=== PATIENT | male | born 1980 | race Hispanic/Latino ===

== ENCOUNTER 2018-03-19 00:17 | Emergency (ER) | payer SELFPAY | END 2018-03-19 00:38 | disposition home or self-care (01) | LOC: NAV ERS 00:17 | DX: F10.129 Alcohol abuse with intoxication, unspecified (principal) | CPT/HCPCS: 99283 ==

== ENCOUNTER 2018-09-26 10:56 | Emergency (ER) | payer SELFPAY ==
[~2018-09-26 10:56] MED LIST: Iopamidol 300 61% 100 ML VIAL FS ONE
[2018-09-26] MEDS ORDERED: Pantoprazole 40 MG VIAL ONE (11:43)
[2018-09-26] MEDS ORDERED: Ketorolac Tromethamine 30 MG/ML VIAL ONE (11:43)
[2018-09-26 11:56] LABS: Bilirubin Small (Negative); Blood, Urine Negative (Negative); Clarity Clear (Clear); Glucose, Urine (Dipstick) Negative (Negative); Leukocyte Negative (Negative); Protein, Urine (Dipstick) 100 mg/dL (Neg-Trace); Specific Gravity, Urine 1.015 (1.005-1.030); pH, Urine 7.5 (5.0-9.0)
[2018-09-26 12:02] LABS: Amphetamine Not Detected (NotDetected); Barbiturates Screen Not Detected (NotDetected); Benzodiazepine Screen Not Detected (NotDetected); Cocaine Metabolite Screen Not Detected (NotDetected); Medtox Control Line Valid? VALID (VALID); Methadone Not Detected (NotDetected); Methamphetamine Not Detected (NotDetected); Opiate Screen Not Detected (NotDetected); Oxycodone Screen Not Detected (NotDetected); Phencyclidine (PCP) Not Detected (NotDetected); THC/Cannabinoid Screen Not Detected (NotDetected); Tricyclic Screen Not Detected (NotDetected)
[2018-09-26 12:04] LABS: ALT (SGPT) 96 U/L (8-55); AST (SGOT) 162 U/L (5-34); Albumin 4.4 g/dL (3.5-5.0); Alcohol Less than 10 mg/dL (Less than 10); Alkaline Phosphatase 115 U/L (40-150); Anion Gap 18 mmol/L (10-20); BUN (Urea Nitrogen) 9 mg/dL (8.9-20.6); Bilirubin, Total 2.3 mg/dL (0.2-1.2); Calc. Creatinine Clearance 0 mL/min (70-130); Calcium 9.5 mg/dL (7.8-10.44); Carbon Dioxide 21 mmol/L (22-29); Chloride 98 mmol/L (98-107); Estimated GFR-MDRD Greater than 90; Globulin 3.5 g/dL (2.4-3.5); Glucose 139 mg/dL (70-105); Lipase 50 U/L (8-78); Potassium 4.1 mmol/L (3.5-5.1); Protein, Total 7.9 g/dL (6.0-8.3); Sodium 133 mmol/L (136-145)
[2018-09-26 12:13] LABS: #Lymphocytes 0.3 thou/uL (1.20-3.40); #Neutrophils 1.8 thou/uL (1.40-6.50); %Basophils 1.7 % (0.0-1.0); %Eosinophils 0.5 % (0.0-10.0); %Lymphocytes 12.6 % (21.0-51.0); %Monocytes 1.9 % (0.0-10.0); %Neutrophils 83.3 % (42.0-75.0); Differential Comment SCANNED; Hemoglobin 13.7 g/dL (14.0-18.0); Mean Corpuscular HGB CONC 32.8 g/dL (32.0-36.0); Mean Corpuscular Hemoglobin 31.5 pg (27.0-31.0); Mean Corpuscular Volume 95.9 fL (78.0-98.0); Mean Platelet Volume 9.4 fL (7.4-10.4); Platelet Count 129 thou/uL (130-400); RBC Distribution Width 12.1 % (11.5-14.5); Red Blood Cell (RBC) Count 4.35 mill/uL (4.70-6.10); White Blood Cell (WBC) Count 2.1 thou/uL (4.8-10.8)
[2018-09-26 12:16] LABS: Nitrite Positive (Negative); Squamous Epithelial 0-3 HPF (0-3)
--- NOTE | 2018-09-26 12:53 | CT ---
EXAM: Abdomen and pelvic CT scan with contrast: HISTORY: Pain COMPARISON: None FINDINGS: The visualized lung bases are clear. Liver: Unremarkable. Gallbladder:Unremarkable. Pancreas:Unremarkable Spleen:Unremarkable. Adrenal glands:Unremarkable. Kidneys:No renal calculus or acute obstruction.No solid or cystic mass. No evidence for bowel obstruction. Abnormally dilated thick-walled appendix with periappendiceal fat stranding evidence for acute append icitis without evidence for abscess or extraluminal gas. The urinary bladder is unremarkable. No abscess, adenopathy, or abnormal fluid collection within the abdomen or pelvis. IMPRESSION: Evidence for acute appendicitis. Findings discussed with Dr. Alexander in the emergency room at 12:40 PM
[2018-09-26] MEDS ORDERED: Piperacillin/Tazobactam 3.375 GM VIAL ONE (13:06)
[2018-09-26] MEDS ORDERED: Acetaminophen 650 MG Suppository ONE (13:23)
[2018-09-26 13:33] LABS: INR-International Normal Ratio 1.1; PTT 32.8 SEC (22.9-36.1); Prothrombin Time 14.2 SEC (12.0-14.7)
== END 2018-09-26 13:29 | disposition short-term general hospital (02) ==
LOC: NAV ERS 10:56
DX: K35.80 Unspecified acute appendicitis (principal); K75.9 Inflammatory liver disease, unspecified; E86.9 Volume depletion, unspecified
CPT/HCPCS: 36415; 74177; 80053; 80306; 80307; 81003; 81015; 82140; 83690; 84484; 85025; 85610; 85730; 87804; 93005; 96361; 96365; 96375; C9113; J1885; J2543; Q9967

== ENCOUNTER 2020-10-25 15:18 | Emergency (ER) | payer SELFPAY ==
[2020-10-25] MEDS ORDERED: Ibuprofen 800 MG TAB ONE (15:50)
[2020-10-25] MEDS ORDERED: Cephalexin 250 MG CAP ONE (15:50)
== END 2020-10-25 15:59 | disposition home or self-care (01) ==
LOC: NAV ERS 15:18
DX: I88.9 Nonspecific lymphadenitis, unspecified (principal); L72.9 Follicular cyst of the skin and subcutaneous tissue, unspecified
CPT/HCPCS: 99282

== ENCOUNTER 2021-01-25 15:12 | Emergency (ER) | payer SELFPAY ==
[2021-01-25] MEDS ORDERED: Ondansetron ODT 4 MG TAB ONE (15:30)
[2021-01-26 08:03] LABS: SARS-CoV-2 PCR by NAA Not Detected (NotDetected)
== END 2021-01-25 15:40 | disposition home or self-care (01) ==
LOC: NAV ERS 15:12
DX: R05 Cough (principal); R11.0 Nausea; M79.10 Myalgia, unspecified site; R53.83 Other fatigue; Z20.822 Contact with and (suspected) exposure to COVID-19
CPT/HCPCS: 99283; Q0162; U0003; U0005

== ENCOUNTER 2021-03-02 08:25 | Emergency (ER) | payer SELFPAY ==
[2021-03-02 09:42] LABS: #Basophils 0.1 thou/uL (0.0-0.2); #Eosinphils 0.1 thou/uL (0.0-0.7); #Lymphocytes 1.4 thou/uL (1.20-3.40); #Monocytes 0.8 thou/uL (0.11-0.59); #Neutrophils 4.2 thou/uL (1.40-6.50); %Basophils 1.3 % (0.0-1.0); %Eosinophils 1.6 % (0.0-10.0); %Lymphocytes 21.6 % (21.0-51.0); %Monocytes 11.6 % (0.0-10.0); %Neutrophils 63.9 % (42.0-75.0); Hemoglobin 16.6 g/dL (14.0-18.0); Mean Corpuscular HGB CONC 33.3 g/dL (32.0-36.0); Mean Corpuscular Hemoglobin 33.7 pg (27.0-31.0); Mean Platelet Volume 10.2 fL (7.4-10.4); Platelet Count 128 thou/uL (130-400); RBC Distribution Width 12.1 % (11.5-14.5); Red Blood Cell (RBC) Count 4.92 mill/uL (4.70-6.10); White Blood Cell (WBC) Count 6.6 thou/uL (4.8-10.8)
[2021-03-02 10:00] LABS: ALT (SGPT) 82 U/L (8-55); AST (SGOT) 198 U/L (5-34); Albumin 3.9 g/dL (3.5-5.0); Alkaline Phosphatase 102 U/L (40-110); Anion Gap 16 mmol/L (10-20); BUN (Urea Nitrogen) Less than 4 mg/dL (8.9-20.6); Calc. Creatinine Clearance 0 mL/min (70-130); Calcium 8.6 mg/dL (7.8-10.44); Carbon Dioxide 27 mmol/L (22-29); Chloride 100 mmol/L (98-107); Globulin 4.1 g/dL (2.4-3.5); Glucose 94 mg/dL (70-105); Potassium 4.1 mmol/L (3.5-5.1); Sodium 139 mmol/L (136-145)
[2021-03-02 10:05] LABS: INR-International Normal Ratio 0.9; Prothrombin Time 12.4 sec (12.0-14.7)
[2021-03-02] MEDS ORDERED: Aspirin Chewable 81 MG TAB ONE (10:05)
[2021-03-02 10:06] LABS: PTT 30.4 sec (22.9-36.1)
[2021-03-02] MEDS ORDERED: Morphine 4 MG/ML VIAL ONE (10:38)
[2021-03-02] MEDS ORDERED: Ondansetron PF 4 MG/2 ML Vial ONE (10:38)
[2021-03-02 14:13] LABS: Bilirubin Negative (Negative); Blood, Urine Negative (Negative); Clarity Clear (Clear); Glucose, Urine (Dipstick) Negative (Negative); Ketone, Urine Negative (Negative); Leukocyte Negative (Negative); Nitrite Negative (Negative); Protein, Urine (Dipstick) Negative (Neg-Trace); Urobilinogen 0.2 mg/dL (Less than 2)
[2021-03-02 14:19] LABS: Amphetamine Not Detected (NotDetected); Barbiturates Screen Not Detected (NotDetected); Benzodiazepine Screen Not Detected (NotDetected); Cocaine Metabolite Screen Not Detected (NotDetected); Medtox Control Line Valid? VALID (VALID); Methadone Not Detected (NotDetected); Methamphetamine Not Detected (NotDetected); Opiate Screen Detected (NotDetected); Oxycodone Screen Not Detected (NotDetected); Phencyclidine (PCP) Not Detected (NotDetected); THC/Cannabinoid Screen Not Detected (NotDetected); Tricyclic Screen Not Detected (NotDetected)
[2021-03-02] MEDS ORDERED: Ketorolac Tromethamine 30 MG/ML VIAL ONE (17:15)
[2021-03-03 00:24] LABS: SARS-CoV-2 PCR by NAA Not Detected (NotDetected)
== END 2021-03-02 17:50 | disposition short-term general hospital (02) ==
LOC: NAV ERS 08:25
DX: I63.9 Cerebral infarction, unspecified (principal); R29.701 NIHSS score 1; R07.9 Chest pain, unspecified; R11.0 Nausea; R05 Cough
CPT/HCPCS: 36415; 70450; 71046; 80053; 80306; 81003; 84484; 85025; 85610; 85730; 93005; 96374; 96375; J1885; J2270; J2405; U0003; U0005

== ENCOUNTER 2021-10-03 17:09 | Emergency (ER) | payer SELFPAY ==
[2021-10-03] MEDS ORDERED: Ondansetron PF 4 MG/2 ML Vial ONE ×2 (17:20→22:47)
[2021-10-03 17:29] LABS: #Basophils 0.1 thou/uL (0.0-0.2); #Lymphocytes 2.2 thou/uL (1.20-3.40); #Monocytes 0.2 thou/uL (0.11-0.59); #Neutrophils 2.6 thou/uL (1.40-6.50); %Basophils 1.2 % (0.0-1.0); %Eosinophils 0.2 % (0.0-10.0); %Lymphocytes 43.5 % (21.0-51.0); %Monocytes 4.3 % (0.0-10.0); %Neutrophils 50.8 % (42.0-75.0); Hemoglobin 13.5 g/dL (14.0-18.0); Mean Corpuscular HGB CONC 31.9 g/dL (32.0-36.0); Mean Corpuscular Hemoglobin 30.8 pg (27.0-31.0); Mean Corpuscular Volume 96.6 fL (78.0-98.0); Mean Platelet Volume 9.5 fL (7.4-10.4); Platelet Count 224 thou/uL (130-400); RBC Distribution Width 11.7 % (11.5-14.5); Red Blood Cell (RBC) Count 4.37 mill/uL (4.70-6.10); White Blood Cell (WBC) Count 5.2 thou/uL (4.8-10.8)
[2021-10-03 17:54] LABS: ALT (SGPT) 31 U/L (8-55); AST (SGOT) 57 U/L (5-34); Acetaminophen Less than 10.0 mcg/mL (10.0-30.0); Albumin 4.1 g/dL (3.5-5.0); Alcohol 339 mg/dL (Less than 10); Alkaline Phosphatase 78 U/L (40-110); Anion Gap 17 mmol/L (10-20); BUN (Urea Nitrogen) Less than 4 mg/dL (8.9-20.6); Bilirubin, Total 0.7 mg/dL (0.2-1.2); CK (CPK) 116 U/L (30-200); Calc. Creatinine Clearance 0 mL/min (70-130); Calcium 8.3 mg/dL (7.8-10.44); Carbon Dioxide 28 mmol/L (22-29); Chloride 102 mmol/L (98-107); Globulin 3.3 g/dL (2.4-3.5); Glucose 109 mg/dL (70-105); Lipase 67 U/L (8-78); Magnesium 2.1 mg/dL (1.6-2.6); Potassium 3.9 mmol/L (3.5-5.1); Protein, Total 7.4 g/dL (6.0-8.3); Salicylate Less than 8.0 mg/dL (15.0-30.0); Sodium 143 mmol/L (136-145)
[2021-10-03 18:09] LABS: Bilirubin Negative (Negative); Blood, Urine Negative (Negative); Clarity Clear (Clear); Glucose, Urine (Dipstick) Negative (Negative); Ketone, Urine Negative (Negative); Leukocyte Negative (Negative); Nitrite Negative (Negative); Protein, Urine (Dipstick) Negative (Neg-Trace); Urobilinogen 0.2 mg/dL (Less than 2)
[2021-10-03 18:14] LABS: Amphetamine Not Detected (NotDetected); Barbiturates Screen Not Detected (NotDetected); Benzodiazepine Screen Not Detected (NotDetected); Cocaine Metabolite Screen Not Detected (NotDetected); Medtox Control Line Valid? VALID (VALID); Methadone Not Detected (NotDetected); Methamphetamine Not Detected (NotDetected); Opiate Screen Not Detected (NotDetected); Oxycodone Screen Not Detected (NotDetected); Phencyclidine (PCP) Not Detected (NotDetected); THC/Cannabinoid Screen Not Detected (NotDetected); Tricyclic Screen Not Detected (NotDetected)
[2021-10-03] MEDS ORDERED: Thiamine HCl 200 MG/2 ML VIAL ONE (18:42)
[2021-10-03] MEDS ORDERED: Dextrose 5 %-0.45 % NaCl 1,000 ML ONE (18:42)
[2021-10-03] MEDS ORDERED: Multivit, Adult Inj 10 ML VIAL ONE (18:42)
[2021-10-03] MEDS ORDERED: Aspirin Chewable 81 MG TAB ONE (18:51)
[2021-10-03 21:02] LABS: Troponin I Less than 0.010 ng/mL (< 0.028)
[2021-10-03] MEDS ORDERED: Famotidine/PF 20 mg/2ml Vial ONE (23:53)
[2021-10-03] MEDS ORDERED: Mag-Al Plus 1200 MG/1200 MG/120 MG/30 ML UDCUP ONE (23:55)
[2021-10-03] MEDS ORDERED: Pantoprazole 40 MG VIAL ONE (23:55)
[2021-10-04 01:01] LABS: Troponin I Less than 0.010 ng/mL (< 0.028)
[2021-10-04 06:35] LABS: Troponin I Less than 0.010 ng/mL (< 0.028)
[2021-10-04] MEDS ORDERED: Ondansetron PF 4 MG/2 ML Vial ONE (07:42)
[2021-10-04] MEDS ORDERED: Ketorolac Tromethamine 30 MG/ML VIAL ONE (08:09)
[2021-10-04] MEDS ORDERED: chlordiazePOXIDE HCl 25 MG CAP PO SCH (08:30)
== END 2021-10-04 11:40 | disposition home or self-care (01) ==
LOC: NAV ERS 17:09
DX: F10.129 Alcohol abuse with intoxication, unspecified (principal); S00.83XA Contusion of other part of head, initial encounter; R45.851 Suicidal ideations; M94.0 Chondrocostal junction syndrome [Tietze]; X58.XXXA Exposure to other specified factors, initial encounter
CPT/HCPCS: 36415; 51701; 70450; 71045; 80053; 80306; 80307; 81003; 82140; 82550; 83690; 83735; 84443; 84484; 85025; 93005; 94760; 96372; 96374; 96375; 96376; C9113; J1885; J2405; J3411; J7042; S0028